=== PATIENT | female | born 1950 | race Caucasian/White ===

== ENCOUNTER 2017-04-01 05:39 | Inpatient (IN) | payer OTHER ==
[2017-04-01] MEDS ORDERED: SODIUM CHLORIDE 0.9% 1,000 ML IV STA (05:52)
[2017-04-01] MEDS ORDERED: ASPIRIN 81 MG CHEW PO STA (05:52)
[2017-04-01] MEDS ORDERED: HEPARIN SODIUM,PORCINE 5,000 UNIT/ML 1 ML VIAL IV PRN (05:52)
[2017-04-01] MEDS ORDERED: HEPARIN SODIUM,PORCINE 5,000 UNIT/ML 1 ML VIAL IV ONE (05:52)
--- NOTE | 2017-04-01 05:56 | ED ---
General Adult HPI - General Stated complaint: Chest Pain Source: RN notes reviewed, old records reviewed - History of Present Illness Initial comments: This is a 66-year-old female the ER for evaluation of chest pain. Severe anterior chest pain. Having is just the shortness of breath. Patient has no cardiac risk factors, no high blood pressure not cholesterol no diabetes or smoking. Patient states she is taking comes left-sided as the pain center on 8: 00 that was just heartburn. Patient is continued throughout the morning. No nausea vomiting or diarrhea. No fevers. Mild shortness of breath again, no syncopal events, patient is not feel like she is going to pass out This time. No prior cardiac evaluation - Related Data Home Medications Medication Instructions Recorded Confirmed Cyanocobalamin [Vitamin B-12] 1,000 mcg PO DAILY@1200 11/11/14 11/11/14 Dicyclomine [Bentyl] 20 mg PO BID 11/11/14 11/11/14 Estrogens, Conjugated [Premarin] 0.3 mg PO DAILY 11/11/14 11/11/14 Iron 65 mg PO DAILY 11/11/14 11/11/14 [place] Carbonate 300 mg PO BID 11/11/14 11/11/14 QUEtiapine [SEROquel] 50 mg PO HS 11/11/14 11/12/14 Ranitidine HCl [Zantac] 150 mg PO BID 11/11/14 11/11/14 Venlafaxine HCl ER [Effexor XR] 150 mg PO BID 11/11/14 11/11/14 Allergies Allergy/AdvReac Type Severity Reaction Status Date / Time Tetanus Vaccines and Toxoid AdvReac Unknown Verified 11/11/14 08:40 [Tetanus Vaccines & Toxoid] Review of Systems ROS Statement: Those systems with pertinent positive or pertinent negative responses have been documented in the HPI. ROS Other: All systems not noted in ROS Statement are negative. Past Medical History Additional Past Medical History / Comment(s): bowel obstruction, arthiritis History of Any Multi-Drug Resistant Organisms: None Reported Past Surgical History: Appendectomy, Hysterectomy, Orthopedic Surgery, Tubal Ligation Additional Past Surgical History / Comment(s): Scar tissue removed from bowel 26 years ago Past Anesthesia/Blood Transfusion Reactions: No Reported Reaction Past Psychological History: Anxiety, Depression, PTSD Smoking Status: Former smoker Past Alcohol Use History: Occasional Past Drug Use History: None Reported - Past Family History Father Family Medical History: Cancer Additional Family Medical History / Comment(s): Bowel and lung cancer Mother Family Medical History: Congestive Heart Failure (CHF) General Exam General appearance: alert, anxious, in distress Head exam: Present: atraumatic, normocephalic, normal inspection Eye exam: Present: normal appearance, PERRL, EOMI. Absent: scleral icterus, conjunctival injection, periorbital swelling ENT exam: Present: normal exam, mucous membranes moist Neck exam: Present: normal inspection. Absent: tenderness, meningismus, lymphadenopathy Respiratory exam: Present: normal lung sounds bilaterally. Absent: respiratory distress, wheezes, rales, rhonchi, stridor Cardiovascular Exam: Present: regular rate, normal rhythm, normal heart sounds. Absent: systolic murmur, diastolic murmur, rubs, gallop, clicks GI/Abdominal exam: Present: soft, normal bowel sounds. Absent: distended, tenderness, guarding, rebound, rigid Extremities exam: Present: normal inspection, full ROM, normal capillary refill. Absent: tenderness, pedal edema, joint swelling, calf tenderness Back exam: Present: normal inspection Neurological exam: Present: alert, oriented X3, CN II-XII intact Psychiatric exam: Present: normal affect, normal mood Skin exam: Present: warm, dry, intact, normal color. Absent: rash Course Vital Signs 04/01/17 06:04 Pulse Rate [ 78 Machine Staker ] - Reevaluation(s) Reevaluation #1: 04/01/17 06:12 Spoke with family regarding STEMI activation, questions are answered EKG Findings - EKG Comments: EKG Findings:: EKG shows sinus bradycardia rate of 57, AK 100, QRS 100, QTC 401 Medical Decision Making - Medical Decision Making 66 female year for evaluation of chest pain. Anterior chest pain having is EKG positive for ST elevated [place], patient be admitted to the [facility], started on heparin with aspirin - Radiology Data Radiology results: report reviewed (Chest x-ray portable negative for acute disease), image reviewed Critical Care Time Critical Care Time: Yes Total Critical Care Time: 31 Disposition Clinical Impression: STEMI (ST elevation myocardial infarction) Disposition: ADMITTED IP TO THIS [facility] Condition: Critical Referrals: Christiano Joshi MD [Primary Care Provider] - 1-2 days
[2017-04-01] MEDS ORDERED: HEPARIN SODIUM,PORCINE/D5W PMX 25,000 UNIT in DEXTROSE/WATER 1 500ML.BAG IV SCH (06:00)
[2017-04-01] MEDS: NITROGLYCERIN SL TABS 0.4 MG TAB SUBLINGUAL PRN ×2 (06:11→06:18)
[2017-04-01 06:20] LABS: CH 34.6; CHCM 31.9; HCT 30.8 % (34.0-46.0); HGB 9.9 gm/dL (11.4-16.0); MCH 35.2 pg (25.0-35.0); MCHC 32.2 g/dL (31.0-37.0); MCV 109.1 fL (80.0-100.0); Macrocytosis Marked; RBC 2.83 m/uL (3.80-5.40); RDW 13.7 % (11.5-15.5)
[2017-04-01 06:22] LABS: ALT 46 U/L (9-52); AST 196 U/L (14-36); Alkaline Phosphatase 83 U/L (38-126); Anion Gap 14 mmol/L; Blood Urea Nitrogen 12 mg/dL (7-17); Calcium 10.8 mg/dL (8.4-10.2); Carbon Dioxide 20 mmol/L (22-30); Chloride 110 mmol/L (98-107); Glucose 168 mg/dL (74-99); Lithium 0.6 mmol/L; Magnesium 1.9 mg/dL (1.6-2.3); Non-African American GFR(MDRD) >60 (>60 ml/min/1.73 sqM); Potassium 3.6 mmol/L (3.5-5.1); Sodium 144 mmol/L (137-145); Total Bilirubin 0.6 mg/dL (0.2-1.3); Total Protein 7.5 g/dL (6.3-8.2)
[2017-04-01 06:23] LABS: Prothrombin Time 10.5 sec (9.0-12.0)
--- NOTE | 2017-04-01 06:24 | XR ---
INDICATION: Chest pain COMPARISON: None. FINDINGS: Single frontal view of the chest is provided. Normal cardiomediastinal silhouette and pulmonary vascularity. No airspace consolidation, pleural effusion, or pneumothorax. No evidence of acute osseous abnormality. IMPRESSION: No radiographic evidence of acute cardiopulmonary disease.
[2017-04-01 06:35] VITALS: BP 102/52; PULSE 54; RESP 18
[2017-04-01 06:37] LABS: Partial Thromboplastin Time 19.9 sec (22.0-30.0)
[2017-04-01] MEDS ORDERED: MORPHINE SULFATE 4 MG/ML SYRINGE IVP STA (06:42)
[2017-04-01 06:46] LABS: Troponin I 22.5 ng/mL (0.000-0.034)
[2017-04-01] MEDS ORDERED: LIDOCAINE 2% INJ 20 MG/ML (20 ML MDV) ONE (06:51)
[2017-04-01] MEDS ORDERED: MIDAZOLAM 2 MG/2 ML VIAL ONE (06:51)
[2017-04-01] MEDS ORDERED: niCARdipine 25 MG/10 ML VIAL ONE (06:51)
[2017-04-01] MEDS ORDERED: VERAPAMIL 2.5 MG/ML 2 ML AMP ONE (06:53)
[2017-04-01] MEDS ORDERED: SODIUM BICARB 8.4% 50 ML SYR (1 MEQ/ML) ONE (07:00)
[2017-04-01] MEDS ORDERED: SODIUM CHLORIDE 0.9% (PF) 10 ML VIAL ONE (07:00)
[2017-04-01] MEDS ORDERED: EPINEPHrine 1 MG/ML (MDV) 30 ML VIAL ONE (07:00)
--- NOTE | 2017-04-01 07:47 | ED ---
Medical Decision Making - Medical Decision Making Patient reassessed, beginning agonal breathing, loss of pulse CPR initiated 25 minutes of high-quality CPR and according to ACLS protocol was continued for 25 minutes, then that time patient had no return of spontaneous circulation, remained pulseless, apneic, pupils fixed and dilated. Paatient at 0718 04/01/17 Dr. Boss was in emergency room with [facility] team of the patient and plan This Dr. Boss walked out of the room after conversing with patient, patient's came to alert the patient was becoming decreased level of consciousness Entered the room to find patient with agonal breathing Patient was laid back, intubated, and CPR was initiated secondary to lack of pulse 04/01/17 07:18 Spoke with family regarding patient's condition, aware patient's mortality, questions are answered - Lab Data Result diagrams: 04/01/17 05:48 04/01/17 05:48 Lab Results 04/01/17 04/01/17 04/01/17 Range/Units 05:48 05:48 05:48 WBC 9.0 (3.8-10.6) k/uL RBC 2.83 L (3.80-5.40) m/uL Hgb 9.9 L (11.4-16.0) gm/dL Hct 30.8 L (34.0-46.0) % MCV 109.1 H (80.0-100.0) fL MCH 35.2 H (25.0-35.0) pg MCHC 32.2 (31.0-37.0) g/dL RDW 13.7 (11.5-15.5) % Plt Count 343 (150-450) k/uL Macrocytosis Marked PT 10.5 (9.0-12.0) sec INR 1.0 (<1.1) APTT 19.9 L (22.0-30.0) sec Sodium 144 (137-145) mmol/L Potassium 3.6 (3.5-5.1) mmol/L Chloride 110 H (98-107) mmol/L Carbon Dioxide 20 L (22-30) mmol/L Anion Gap 14 mmol/L BUN 12 (7-17) mg/dL Creatinine 0.90 (0.52-1.04) mg/dL Est GFR (MDRD) Af Amer >60 (>60 ml/min/1.73 sqM) Est GFR (MDRD) Non-Af >60 (>60 ml/min/1.73 sqM) Glucose 168 H (74-99) mg/dL Calcium 10.8 H (8.4-10.2) mg/dL Magnesium 1.9 (1.6-2.3) mg/dL Total Bilirubin 0.6 (0.2-1.3) mg/dL AST 196 H (14-36) U/L ALT 46 (9-52) U/L Alkaline Phosphatase 83 (38-126) U/L Total Creatine Kinase (30-135) U/L CK-MB (CK-2) (0.0-2.4) ng/mL CK-MB (CK-2) Rel Index Troponin I (0.000-0.034) ng/mL Total Protein 7.5 (6.3-8.2) g/dL Albumin 4.5 (3.5-5.0) g/dL [place] 0.6 mmol/L 04/01/17 Range/Units 05:48 WBC (3.8-10.6) k/uL RBC (3.80-5.40) m/uL Hgb (11.4-16.0) gm/dL Hct (34.0-46.0) % MCV (80.0-100.0) fL MCH (25.0-35.0) pg MCHC (31.0-37.0) g/dL RDW (11.5-15.5) % Plt Count (150-450) k/uL Macrocytosis PT (9.0-12.0) sec INR (<1.1) APTT (22.0-30.0) sec Sodium (137-145) mmol/L Potassium (3.5-5.1) mmol/L Chloride (98-107) mmol/L Carbon Dioxide (22-30) mmol/L Anion Gap mmol/L BUN (7-17) mg/dL Creatinine (0.52-1.04) mg/dL Est GFR (MDRD) Af Amer (>60 ml/min/1.73 sqM) Est GFR (MDRD) Non-Af (>60 ml/min/1.73 sqM) Glucose (74-99) mg/dL Calcium (8.4-10.2) mg/dL Magnesium (1.6-2.3) mg/dL Total Bilirubin (0.2-1.3) mg/dL AST (14-36) U/L ALT (9-52) U/L Alkaline Phosphatase (38-126) U/L Total Creatine Kinase 2116 H (30-135) U/L CK-MB (CK-2) 153.0 H* (0.0-2.4) ng/mL CK-MB (CK-2) Rel Index Troponin I 22.500 H* (0.000-0.034) ng/mL Total Protein (6.3-8.2) g/dL Albumin (3.5-5.0) g/dL [place] mmol/L Critical Care Time Critical Care Time: Yes Total Critical Care Time: 31 Disposition Clinical Impression: STEMI (ST elevation myocardial infarction), Cardiopulmonary arrest Disposition: Condition: Critical Preliminary Cause of : CPA
[2017-04-01] MEDS ORDERED: DICYCLOMINE 20 MG TAB PO SCH (09:00)
[2017-04-01] MEDS ORDERED: IRON 65 MG PO SCH (09:00)
[2017-04-01] MEDS ORDERED: ATORVASTATIN 80 MG TAB PO SCH (09:00)
[2017-04-01] MEDS ORDERED: ESTROGENS, CONJUGATED 0.3 MG TAB PO SCH (09:00)
[2017-04-01] MEDS ORDERED: VENLAFAXINE HCL ER 150 MG CAP PO SCH (09:00)
[2017-04-01] MEDS ORDERED: LITHIUM CARBONATE 300 MG CAP PO SCH (09:00)
[2017-04-01] MEDS ORDERED: CYANOCOBALAMIN 500 MCG TAB PO SCH (12:00)
[2017-04-01] MEDS ORDERED: QUEtiapine 25 MG TAB PO SCH (21:00)
--- NOTE | 2017-04-01 21:22 | HP ---
DATE OF ADMISSION: 04/01/2017 DATE PATIENT : 04/01/2017 HISTORY AND PHYSICAL EXAMINATION/DISCHARGE SUMMARY: FINAL DIAGNOSIS(ES): Acute ST elevation myocardial infarction. HOSPITAL COURSE: This patient is a 66-year-old patient presented to the ER, the patient was seen by Dr. Hurtado from the ER. Patient ST elevation myocardial infarction, had a cardiac arrest and then in the ER. Patient was never seen by me. My nurse practitioner, Ms. Ivis Decker was career based intervention coordinator but never received the call. The patient admitted to my service hence I am doing the above note. The patient was not seen by me or my nurse practitioner. For more details please refer to the ER note. Copy to Dr. Joshi.
[2017-04-02] MEDS ORDERED: ASPIRIN 325 MG TAB PO SCH (09:00)
== END 2017-04-01 07:18 | disposition expired ==
LOC: EC 05:39 → 6ICU 05:52
PROVIDERS: ADMIT Hospitalist; ATTEND Hospitalist
PROC: 5A12012 Performance of Cardiac Output, Single, Manual (ICD-10-PCS; principal; 2017-04-01)
DX: I21.3 ST elevation (STEMI) myocardial infarction of unspecified site (principal); I46.9 Cardiac arrest, cause unspecified; F41.9 Anxiety disorder, unspecified; F43.10 Post-traumatic stress disorder, unspecified; F32.9 Major depressive disorder, single episode, unspecified; Z90.710 Acquired absence of both cervix and uterus; Z87.891 Personal history of nicotine dependence; Z88.7 Allergy status to serum and vaccine; Z79.82 Long term (current) use of aspirin; Z79.899 Other long term (current) drug therapy; Z82.49 Family history of ischemic heart disease and other diseases of the circulatory system
CPT/HCPCS: 31500; 36415; 71010; 80053; 80178; 82550; 82553; 83735; 84484; 85027; 85610; 85730; 92950; 93005; 96365; 96375; 96376; 99291